=== PATIENT | male | born 1995 | race Caucasian/White ===

== ENCOUNTER 2023-02-19 15:40 | Inpatient (IN) ==
[2023-02-19 15:49] VITALS: BMI 21.9
--- NOTE | 2023-02-19 16:16 | DR.ALLERGY ---
HPI Time Seen Time Seen by Provider: 02/19/23 16:15 PCP Primary Care Physician: ISIS BROWNING Complaint/Symptoms Chief Complaint Doctors Comments: 27 y/o male presents for evaluation. Was helping a friend around a barn yesterday, pulling weeds. Showed his right hand to his girlfriend last pm, thought he had an insect/spider bite, was itchy. Worsened as the night went on. Having increasing swelling, redness, pain of the R hand. + felt warm his S.O, having some chills and diffuse muscle pain. Having increasing pain of the R hand, radiates up arm. + worse with moving and palpation. Nothing makes it better. No prior h/o MRSA infections. 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, FEVER LAST NIGHT, "I HAVE NEVER FELT THIS BAD"; ACHING ALL OVER, RIGHT HAND SWOLLEN, INFLAMMED; PAIN ALL OVER Self Treatment fo Chief Complaint: TYLENOL TODAY AROUND 1320 COVID-19 Coronavirus risk:travel/contact w/high risk person: No Has patient experienced Coronavirus symptoms: No Source History Provided: Patient and Family Member Mode of Arrival Mode of Arrival: Wheelchair Timing Onset of Chief Complaint: 02/19/23 PMH PMH Past Medical History: Yes Past Medical History: Anxiety Past Medical History Comment: MS, BACK PAIN Past Surgical History: No Family History History of Family Medical Conditions: No Social History Does patient currently use any type of tobacco product: Yes Have you used tobacco products in the last 12 months: Yes Type of Tobacco Use: Cigarettes Does any household member use tobacco: Yes Alcohol Use: DAILY Do you use any recreational Drugs:: Yes (MARIJUANA, METH) Lives With: Spouse Lives Where: Home Travel Risk Coronavirus risk:travel/contact w/high risk person: No Has patient experienced Coronavirus symptoms: No Infectious screening In the last 2 months have you had wt loss of >10#?: NO Have you had fever, night sweats or hemotysis?: No Have you traveled outside the country in the last 6 months?: No Isolation: Standard ROS Review of Systems Constitutional: Chills, Fever and Weakness Eyes: No Symptoms Reported ENTM: No Symptoms Reported Respiratoy: No Symptoms Reported Cardiovascular: No Symptoms Reported Gastrointestinal/Abdominal: No Symptoms Reported Genitourinary: No Symptoms Reported Neurological: Weakness Musculoskeletal: See HPI Integumentary: See HPI Hematologic/Lymphatic: No Symptoms Reported Psychiatric: No Symptoms Reported All Other Systems: Reviewed and Negative PE Vitals Vital Signs: Temp Pulse Resp BP Pulse Ox O2 Del Method 02/19/23 17:40 22 02/19/23 17:10 16 02/19/23 15:41 98.9 F 95 H 18 116/85 99 Room Air Constitutional General Appearance: Alert and Other (sleepy) Eyes Eye exam: PERRL and EOMI ENT ENT Exam: Mucous Membranes Moist Respiratory Respiratory Exam: Normal Lung Sounds Bilat; negative Accessory Muscle Use or Respiratory Distress Cardiovascular Cardiovascular Exam: Regular Rate, Normal Rhythm and Normal Heart Sounds Abdominal Exam Abdominal Exam: Normal Bowel Sounds and Soft; negative Tenderness Neurologic Neurological Exam: negative Motor Sensory Deficit Other Exam Other Exam: R hand - + 1 cm wound of dorsal distal R hand, with superficial loss of skin. + marked erythema/swekking and tenderness of the R hand. COURSE Treatment Treatment: 27 y/o male with a wound of the dorsal R hand, which has dramatically worsened in < 1 day. Highly concerning for infection, more than allergic reaction. W/u initiated. 1753 - WBC 26K, mostly neutrophils, no eosinophils. Hand x-ray without gas formation or bony involvement. Concerning for rapidily developing cellulitis. Recommend admission for IV antibiotics. Given IV zosyn/vancomycin in the ER. Discussed with Dr Miller, will admit. Pt/girlfriend deny that he injects drugs. Concerning for MRSA infection. ROR Labs Reviewed Result Diagrams: 02/19/23 16:52 02/19/23 16:52 Laboratory: WBC 26.0 X10^3/uL (3.6-10.0) H 02/19/23 16:52 RBC 4.83 X10^6/uL (4.7-6.0) 02/19/23 16:52 Hgb 14.5 g/dL (13.5-18.0) 02/19/23 16:52 Hct 42.7 % (42.0-54.0) 02/19/23 16:52 MCV 88.3 fL (80.0-100.0) 02/19/23 16:52 MCH 30.0 pg (27.0-34.0) 02/19/23 16:52 MCHC 34.0 g/dL (33.0-35.0) 02/19/23 16:52 RDW 12.1 % (11.6-16.5) 02/19/23 16:52 Plt Count 231 X10^3/uL (150.0-450.0) 02/19/23 16:52 Plt Count Comment Adequate (ADEQUATE) 02/19/23 16:52 MPV 7.7 fL (7.4-11.0) 02/19/23 16:52 Neut % (Auto) 88.3 % (42.0-75.0) H 02/19/23 16:52 Lymph % (Auto) 4.5 % (21.0-51.0) L 02/19/23 16:52 [place] % (Auto) 7.1 % (0.0-13.0) 02/19/23 16:52 Eos % (Auto) 0.0 % (0.9-2.9) L 02/19/23 16:52 Baso % (Auto) 0.1 % (0.2-1.0) L 02/19/23 16:52 Neut # (Auto) 22.9 x10^3/uL (2.2-4.8) H 02/19/23 16:52 Lymph # (Auto) 1.2 X10^3/uL (1.3-2.9) L 02/19/23 16:52 [place] # (Auto) 1.8 x10^3/uL (0.3-0.8) H 02/19/23 16:52 Eos # (Auto) 0.0 x10^3/uL (0.0-0.2) 02/19/23 16:52 Baso # (Auto) 0.0 X10^3/uL (0.0-0.1) 02/19/23 16:52 Absolute Nucleated RBC 0.0 /100WBC 02/19/23 16:52 Total Counted 100 02/19/23 16:52 Neutrophils % (Manual) 88 % (39-76) H 02/19/23 16:52 Lymphocytes % (Manual) 6 % (13-43) L 02/19/23 16:52 Monocytes % (Manual) 6 % (4-9) 02/19/23 16:52 Plt Morphology Comment Normal (NORMAL) 02/19/23 16:52 RBC Morphology Normal (NORMAL) 02/19/23 16:52 Sodium 135 mmol/L (136-145) L 02/19/23 16:52 Corrected Sodium 136 mmol/L (136-145) 02/19/23 16:52 Potassium 3.6 mmol/L (3.5-5.1) 02/19/23 16:52 Chloride 99 mmol/L (98-107) 02/19/23 16:52 Carbon Dioxide 26.8 mmol/L (21-32) 02/19/23 16:52 BUN 9 mg/dL (7-18) 02/19/23 16:52 Creatinine 0.83 mg/dL (0.70-1.30) 02/19/23 16:52 Est GFR (MDRD) Af Amer > 60 (>60) 02/19/23 16:52 Est GFR (MDRD) Non-Af > 60 (>60) 02/19/23 16:52 Glucose 145 mg/dL (65-99) H 02/19/23 16:52 Lactic Acid 1.5 mmol/L (0.4-2.0) 02/19/23 16:52 Calcium 9.2 mg/dL (8.5-10.1) 02/19/23 16:52 Corrected Calcium TNP 02/19/23 16:52 Total Bilirubin 0.90 mg/dL (0.2-1.0) 02/19/23 16:52 AST 17 Units/L (15-37) 02/19/23 16:52 ALT 30 Units/L (12-78) 02/19/23 16:52 Alkaline Phosphatase 48 Units/L (46-116) 02/19/23 16:52 Total Protein 6.9 g/dL (6.4-8.2) 02/19/23 16:52 Albumin 3.6 g/dL (3.4-5.0) 02/19/23 16:52 Globulin 3.3 g/dL (2.5-4.5) 02/19/23 16:52 Albumin/Globulin Ratio 1.1 Ratio (1.1-2.1) 02/19/23 16:52 Opioid Opioid Risk Tool Age (Jono box if 16-45): Yes History of Preadolescent Sexual Abuse: No Total: 1 Total Score Risk Category: Low Risk Copyright: Rao MARES predicting aberrant behaviors Discharge Plan Diagnosis Discharge Problem: Cellulitis of hand, right Discharge Plan Patient Disposition: 09 ADMITTED INPATIENT Condition: Stable Health Concerns: Post Hospitalization: new medications and changes needed to prevent readmission or further decline. Pt educated and given instructions on all concerns. Plan of Treatment: Continue with present treatment and follow up plan. Pt is to keep follow up appointment as instructed and take medications as ordered. Orders to Discharge Patient Discharge Orders: Transfer (Routine); Ordered 02/19/23 Ordered By: iGgi Fernández Follow ups/Referrals Follow ups/Referrals: ISIS BROWNING [Primary Care Provider] - 3 days
[2023-02-19] MEDS ORDERED: NS 1,000 ML IV 1,000 ML IV ONE (16:24)
[2023-02-19] MEDS ORDERED: TORADOL 30 MG VIAL IVP ONE (16:24)
[2023-02-19] MEDS ORDERED: NS 1,000 ML IV 1,000 ML ONE ×2 (17:05→18:12)
[2023-02-19] MEDS ORDERED: TORADOL 30 MG VIAL ONE (17:05)
[2023-02-19 17:12] LABS: HEMOGLOBIN 14.5 g/dL (13.5-18.0)
[2023-02-19 17:28] LABS: ALANINE AMINOTRANSFERASE 30 Units/L (12-78); ALBUMIN 3.6 g/dL (3.4-5.0); ALKALINE PHOSPHATASE 48 Units/L (46-116); ASPARTATE AMINO TRANSFERASE 17 Units/L (15-37); BLOOD UREA NITROGEN 9 mg/dL (7-18); CALCIUM 9.2 mg/dL (8.5-10.1); CARBON DIOXIDE 26.8 mmol/L (21-32); CHLORIDE 99 mmol/L (98-107); COR NA(FOR HYPERGLY) 136 mmol/L (136-145); CREATININE 0.83 mg/dL (0.70-1.30); GLUCOSE 145 mg/dL (65-99); POTASSIUM 3.6 mmol/L (3.5-5.1); SODIUM 135 mmol/L (136-145); TOTAL PROTEIN 6.9 g/dL (6.4-8.2); eGFR NON BLACK RACES > 60 (>60)
[2023-02-19 17:29] LABS: LACTIC ACID 1.5 mmol/L (0.4-2.0)
[2023-02-19 17:31] LABS: BASOPHILS % (AUTO) 0.1 % (0.2-1.0); HEMATOCRIT 42.7 % (42.0-54.0); LYMPHOCYTES # (AUTO) 1.2 X10^3/uL (1.3-2.9); LYMPHOCYTES % (AUTO) 4.5 % (21.0-51.0); MEAN CORPUSCULAR VOLUME 88.3 fL (80.0-100.0); MEAN PLATELET VOLUME 7.7 fL (7.4-11.0); MONOCYTES # (AUTO) 1.8 x10^3/uL (0.3-0.8); MONOCYTES % (AUTO) 7.1 % (0.0-13.0); NEUTROPHILS # (AUTO) 22.9 x10^3/uL (2.2-4.8); NEUTROPHILS % (AUTO) 88.3 % (42.0-75.0); PLATELET COUNT 231 X10^3/uL (150.0-450.0); RED BLOOD COUNT 4.83 X10^6/uL (4.7-6.0); RED CELL DISTRIBUTION WIDTH 12.1 % (11.6-16.5)
[2023-02-19] MEDS ORDERED: ZOSYN VIAL 3.375 GRAMS 3.375 G in NS 100 ML IV 100 ML IV ONE (17:50)
[2023-02-19] MEDS ORDERED: VANCOMYCIN IV *PREMIX 1 G/200 ML BAG 1 G/200 ML PIGGYBACK IV ONE ×2 (17:52→18:08)
[2023-02-19 17:53] LABS: PLATELET MORPHOLOGY COMMENT NORMAL (NORMAL)
[2023-02-19] MEDS ORDERED: MORPHINE SULFATE INJ 4 MG ONE (18:07)
[2023-02-19] MEDS ORDERED: ZOSYN VIAL 3.375 GRAMS IV ONE (18:07)
[2023-02-19] MEDS ORDERED: NS 100 ML IV 100 ML ONE (18:08)
[2023-02-19] MEDS: MORPHINE SULFATE INJ 4 MG IVP ONE ×2 (18:11→18:40)
[2023-02-19] MEDS ORDERED: NICOTINE PATCH TD STA (19:04)
[2023-02-19 19:26] LABS: BILIRUBIN,URINE NEGATIVE (NEGATIVE); BLOOD/HEMOGLOBIN,URINE NEGATIVE (NEGATIVE); GLUCOSE, URINE NEGATIVE (NEGATIVE); KETONES,URINE NEGATIVE (NEGATIVE); LEUKOCYTE ESTERASE ,URINE NEGATIVE (NEGATIVE); NITRITES,URINE NEGATIVE (NEGATIVE); PROTEIN,URINE 1+ (NEGATIVE); UROBILINOGEN,URINE NORMAL (NORMAL)
[2023-02-19] MEDS: NS 1,000 ML IV 1,000 ML IV SCH (19:30)
[2023-02-19 19:39] LABS: APPEARANCE,URINE CLEAR (CLEAR); BACTERIA,URINE NEGATIVE /HPF (NEGATIVE); COLOR,URINE YELLOW (YELLOW); RBC,URINE NONE SEEN /HPF (0-3); SQUAMOUS EPITHELIAL CELL,UR RARE /HPF (NEGATIVE)
[2023-02-19] MEDS ORDERED: ZOSYN VIAL 3.375 GRAMS 3.375 G in NS 100 ML IV 100 ML IV SCH (20:11)
[2023-02-19] MEDS: CHECK PATCH XX SCH (21:57)
[2023-02-19] MEDS: PHARMACY CONSULT - VANCOMYCIN XX SCH (21:58)
[2023-02-19] MEDS ORDERED: VANCOMYCIN IV *PREMIX 1 G/200 ML BAG 1 G/200 ML PIGGYBACK IV SCH (22:00)
[2023-02-20] MEDS ORDERED: ULTRAM PO PRN (02:55)
[2023-02-20] MEDS ORDERED: TYLENOL 325 MG TAB PO PRN (03:07)
[2023-02-20] MEDS: NS 1,000 ML IV 1,000 ML IV SCH ×3 (03:08→21:35)
[2023-02-20] MEDS: VANCOMYCIN IV *PREMIX 1 G/200 ML BAG 1 G/200 ML PIGGYBACK IV SCH ×3 (05:09→21:53)
[2023-02-20] MEDS: ZOSYN VIAL 3.375 GRAMS 3.375 G in NS 100 ML IV 100 ML IV SCH ×3 (05:09→21:44)
[2023-02-20 05:32] LABS: BASOPHILS # (AUTO) 0.1 X10^3/uL (0.0-0.1); BASOPHILS % (AUTO) 0.2 % (0.2-1.0); EOSINOPHILS % (AUTO) 0.1 % (0.9-2.9); HEMATOCRIT 42.7 % (42.0-54.0); HEMOGLOBIN 14.5 g/dL (13.5-18.0); LYMPHOCYTES # (AUTO) 1.7 X10^3/uL (1.3-2.9); LYMPHOCYTES % (AUTO) 7.4 % (21.0-51.0); MEAN CORPUSCULAR HEMOGLOBIN 30.2 pg (27.0-34.0); MEAN CORPUSCULAR VOLUME 88.7 fL (80.0-100.0); MEAN PLATELET VOLUME 7.7 fL (7.4-11.0); MONOCYTES # (AUTO) 1.9 x10^3/uL (0.3-0.8); MONOCYTES % (AUTO) 8.3 % (0.0-13.0); NEUTROPHILS # (AUTO) 18.7 x10^3/uL (2.2-4.8); PLATELET COUNT 199 X10^3/uL (150.0-450.0); RED BLOOD COUNT 4.81 X10^6/uL (4.7-6.0); RED CELL DISTRIBUTION WIDTH 12.4 % (11.6-16.5); WHITE BLOOD COUNT 22.3 X10^3/uL (3.6-10.0)
[2023-02-20 05:44] LABS: ALANINE AMINOTRANSFERASE 45 Units/L (12-78); ALBUMIN 3.2 g/dL (3.4-5.0); ALKALINE PHOSPHATASE 45 Units/L (46-116); ASPARTATE AMINO TRANSFERASE 27 Units/L (15-37); BLOOD UREA NITROGEN 9 mg/dL (7-18); CALCIUM 8.7 mg/dL (8.5-10.1); CARBON DIOXIDE 29.2 mmol/L (21-32); CHLORIDE 101 mmol/L (98-107); COR CA(FOR HYPOALB) 9.3 mg/dL (8.5-10.1); CREATININE 0.93 mg/dL (0.70-1.30); GLUCOSE 97 mg/dL (65-99); POTASSIUM 3.6 mmol/L (3.5-5.1); SODIUM 135 mmol/L (136-145); TOTAL PROTEIN 6.6 g/dL (6.4-8.2); eGFR NON BLACK RACES > 60 (>60)
[2023-02-20 05:50] LABS: BAND NEUTROPHILS % 3 % (0-10)
[2023-02-20 05:51] LABS: PLATELET MORPHOLOGY COMMENT NORMAL (NORMAL)
[2023-02-20] MEDS ORDERED: POTASSIUM CHLORIDE LIQ 20 MEQ UDC PO PRN (06:56)
[2023-02-20] MEDS ORDERED: POTASSIUM CHL 60 MEQ/NS 0.45% 500 ML IV PRN (06:56)
[2023-02-20] MEDS ORDERED: POTASSIUM CHL 40 MEQ/NS 0.45% 500 ML IV PRN (06:56)
[2023-02-20] MEDS ORDERED: MICRO K EXTEN CAP 10 MEQ PO PRN (06:56)
[2023-02-20] MEDS ORDERED: K-RIDER 10 MEQ/NS 100 ML 10 MEQ/100 ML BAG IV PRN (06:56)
[2023-02-20] MEDS ORDERED: KLOR-CON PO PRN (06:56)
--- NOTE | 2023-02-20 08:23 | RAD ---
HISTORYBiteSTUDYRight hand three viewsCOMPARISONNoneFINDINGSThere is marked soft tissue swelling of the hand without evidence for fracture, osteomyelitis, articular deformity or foreign body.IMPRESSIONNo acute osseous or joint space abnormality identified.Electronically signed by: THEODORE CARRION (Feb 20, 2023 08:22:25)
[2023-02-20] MEDS: CHECK PATCH XX SCH ×2 (08:34→21:52)
[2023-02-20] MEDS: NICOTINE PATCH TD SCH (08:34)
[2023-02-20] MEDS: MAGNESIUM SULFATE 1 GRAM/100 mL PREMIX 1 G/100 ML BAG IV PRN ×2 (11:47→21:35)
--- NOTE | 2023-02-20 11:48 | DR.H&P ---
H&P - History & Physical for Day of: H&P Date: 02/19/23 - Chief Complaint Chief Complaint: WOUND TO RIGHT HAND - History of Present Illness History of Present Illness: PT IS 27 WM, ER ADMISSION WITH CO he was helping a friend around a barn yesterday, pulling weeds. Showed his right hand to his girlfriend last pm, thought he had an insect/spider bite, was itchy. Worsened as the night went on. Having increasing swelling, redness, pain of the R hand. + felt warm his S.O, having some chills and diffuse muscle pain. Having increasing pain of the R hand, radiates up arm. + worse with moving and palpation. Nothing makes it better. No prior h/o MRSA infections. - Past Medical History Past Medical History: Anxiety Additional Medical History: illicit drug use - Family History Family Medical History: Hypertension - Social History Does patient currently use any type of tobacco product: Yes Have you used tobacco products in the last 12 months: Yes Type of Tobacco Use: Cigarettes Does any household member use tobacco: Yes Alcohol Use: Occasionally Drug Use: Methamphetamine, Marijuana - Medications Home Medications: No Known Allergies Allergy (Verified 02/19/23 17:03) CONTINUE taking the following medications NK 02/19/23 [History] - Review of Systems Constitutional: Fever, Weakness Eyes: No Symptoms Reported ENT: No Symptoms Reported Respiratory: No Symptoms Reported Cardiovascular: No Symptoms Reported Gastrointestinal: No Symptoms Reported Genitourinary: No Symptoms Reported Musculoskeletal: Hand Pain Skin: Wound Neurological: No Symptoms Reported - Physical Exam Vital Signs: Temperature 97.8 F Pulse Rate [Right Brachial] 71 Pulse Rate 95 Respiratory Rate 18 Blood Pressure [Right Arm] 119/56 Blood Pressure 116/85 O2 Sat by Pulse Oximetry 96 Oriented: Normal Eyes: Normal Ear: Normal Nose: Normal Throat: Normal Respiratory: Clear Throughout Cardiovascular: Normal : Normal Auscultation: Bowel Sounds: Normal Palpation: Normal Tenderness: Normal Skin: Red, Tender, Hot, Wound (right hand) Musculoskeletal: Right, Hand, Swelling, Tender Mood Description: Calm Speech Pattern: Clear (difficult to arouse ) - Assessment/Plan (1) Cellulitis of hand, right Status: Acute Plan: ADMIT, IV HYDRATION, IV ANTIBIOTIC THERAPY WITH ZOSYN AND VANCOMYCIN. VERIFY HOME MEDICATION, BLOOD AND WOUND CULTURES OBTAINED ON ADMISSION. HAND XRAY OBTAINED IN THE ER (2) Illicit drug use Status: Acute - Allergies Allergies/Adverse Reactions: Allergies Allergy/AdvReac Type Severity Reaction Status Date / Time No Known Allergies Allergy Verified 02/19/23 17:03
--- NOTE | 2023-02-20 11:50 | PCM.PROG ---
Progress Note - Progress Note for Day of Date of Exam: 02/20/23 - Subjective Subjective: PT IS 27 WM, ER ADMISSION WITH CELLULITIS TO HIS RIGHT HAND. PT IS CURRENTLY ON IV VANCO AND ZOSYN. PT WAS FEBRILE LAST PM. HE WBC AT 22K THIS AM. PT HAS BEEN DIFFICULT TO AROUSE PER NURSING STAFF. PT IS CURRENTLY ON GENTLE IV HYDRATION WITH PRN TYLENOL FOR PAIN. PLAN TO CONSULT DR PARTIDA FOR SURGICAL EVALUATION FOR POSSIBLE I&D. - Past Medical Family Social History Past Med/Fam/Surg Hx: No changes since H&P Allergies: Allergies No Known Allergies Allergy (Verified 02/19/23 17:03) - Review of Systems ROS: No change since H&P - Vital Signs and I&O's Vital Signs: Temperature 97.8 F Pulse Rate [Right Brachial] 71 Pulse Rate 95 Respiratory Rate 18 Blood Pressure [Right Arm] 119/56 Blood Pressure 116/85 O2 Sat by Pulse Oximetry 96 Intake and Output: Intake & Output 02/17/23 02/18/23 02/19/23 02/20/23 11:59 11:59 11:59 11:59 Intake Total 740 / 740 Balance 740 / 740 - Physical Exam Oriented: Normal Eyes: Normal Ear: Normal Nose: Normal Throat: Normal Cardiovascular: Normal : Normal Auscultation: Bowel Sounds: Normal Tenderness: Normal Skin: Red, Tender, Hot, Wound (right hand) Musculoskeletal: Right, Hand, Swelling, Tender Mood Description: Calm Speech Pattern: Clear (difficult to arouse ) - Laboratory and Diagnostics Result Diagrams: 02/20/23 05:10 02/20/23 05:10 Labs: 02/19/23 18:04 Hand - Right Wound Gram Stain - Final 02/19/23 18:04 Hand - Right Wound Culture - Preliminary Laboratory WBC 22.3 X10^3/uL (3.6-10.0) H 02/20/23 05:10 RBC 4.81 X10^6/uL (4.7-6.0) 02/20/23 05:10 Hgb 14.5 g/dL (13.5-18.0) 02/20/23 05:10 Hct 42.7 % (42.0-54.0) 02/20/23 05:10 MCV 88.7 fL (80.0-100.0) 02/20/23 05:10 MCH 30.2 pg (27.0-34.0) 02/20/23 05:10 MCHC 34.0 g/dL (33.0-35.0) 02/20/23 05:10 RDW 12.4 % (11.6-16.5) 02/20/23 05:10 Plt Count 199 X10^3/uL (150.0-450.0) 02/20/23 05:10 Plt Count Comment Adequate (ADEQUATE) 02/20/23 05:10 MPV 7.7 fL (7.4-11.0) 02/20/23 05:10 Neut % (Auto) 84.0 % (42.0-75.0) H 02/20/23 05:10 Lymph % (Auto) 7.4 % (21.0-51.0) L 02/20/23 05:10 [place] % (Auto) 8.3 % (0.0-13.0) 02/20/23 05:10 Eos % (Auto) 0.1 % (0.9-2.9) L 02/20/23 05:10 Baso % (Auto) 0.2 % (0.2-1.0) 02/20/23 05:10 Neut # (Auto) 18.7 x10^3/uL (2.2-4.8) H 02/20/23 05:10 Lymph # (Auto) 1.7 X10^3/uL (1.3-2.9) 02/20/23 05:10 [place] # (Auto) 1.9 x10^3/uL (0.3-0.8) H 02/20/23 05:10 Eos # (Auto) 0.0 x10^3/uL (0.0-0.2) 02/20/23 05:10 Baso # (Auto) 0.1 X10^3/uL (0.0-0.1) 02/20/23 05:10 Absolute Nucleated RBC 0.0 /100WBC 02/20/23 05:10 Total Counted 100 02/20/23 05:10 Neutrophils % (Manual) 84 % (39-76) H 02/20/23 05:10 Band Neutrophils % 3 % (0-10) 02/20/23 05:10 Lymphocytes % (Manual) 6 % (13-43) L 02/20/23 05:10 Monocytes % (Manual) 7 % (4-9) 02/20/23 05:10 Plt Morphology Comment Normal (NORMAL) 02/20/23 05:10 RBC Morphology Normal (NORMAL) 02/20/23 05:10 Sodium 135 mmol/L (136-145) L 02/20/23 05:10 Corrected Sodium TNP 02/20/23 05:10 Potassium 3.6 mmol/L (3.5-5.1) 02/20/23 05:10 Chloride 101 mmol/L (98-107) 02/20/23 05:10 Carbon Dioxide 29.2 mmol/L (21-32) 02/20/23 05:10 BUN 9 mg/dL (7-18) 02/20/23 05:10 Creatinine 0.93 mg/dL (0.70-1.30) 02/20/23 05:10 Est GFR (MDRD) Af Amer > 60 (>60) 02/20/23 05:10 Est GFR (MDRD) Non-Af > 60 (>60) 02/20/23 05:10 Glucose 97 mg/dL (65-99) 02/20/23 05:10 Lactic Acid 1.5 mmol/L (0.4-2.0) 02/19/23 16:52 Calcium 8.7 mg/dL (8.5-10.1) 02/20/23 05:10 Corrected Calcium 9.3 mg/dL (8.5-10.1) 02/20/23 05:10 Magnesium 1.7 mg/dL (2.0-2.9) L 02/20/23 05:10 Total Bilirubin 0.60 mg/dL (0.2-1.0) 02/20/23 05:10 AST 27 Units/L (15-37) 02/20/23 05:10 ALT 45 Units/L (12-78) 02/20/23 05:10 Alkaline Phosphatase 45 Units/L (46-116) L 02/20/23 05:10 Total Protein 6.6 g/dL (6.4-8.2) 02/20/23 05:10 Albumin 3.2 g/dL (3.4-5.0) L 02/20/23 05:10 Globulin 3.4 g/dL (2.5-4.5) 02/20/23 05:10 Albumin/Globulin Ratio 0.9 Ratio (1.1-2.1) L 02/20/23 05:10 Specimen Type Clean catch urine 02/19/23 19:18 Urine Color Yellow (YELLOW) 02/19/23 19:18 Urine Appearance Clear (CLEAR) 02/19/23 19:18 Urine pH 7.0 (5.0 - 8.0) 02/19/23 19:18 Ur Specific [place] 1.010 (1.000-1.030) 02/19/23 19:18 Urine Protein 1+ (NEGATIVE) 02/19/23 19:18 Urine Glucose (UA) Negative (NEGATIVE) 02/19/23 19:18 Urine Ketones Negative (NEGATIVE) 02/19/23 19:18 Urine Blood Negative (NEGATIVE) 02/19/23 19:18 Urine Nitrite Negative (NEGATIVE) 02/19/23 19:18 Urine Bilirubin Negative (NEGATIVE) 02/19/23 19:18 Urine Urobilinogen Normal (NORMAL) 02/19/23 19:18 Ur Leukocyte Esterase Negative (NEGATIVE) 02/19/23 19:18 Urine RBC None seen /HPF (0-3) 02/19/23 19:18 Urine WBC 0-2 /HPF (0-5) 02/19/23 19:18 Ur Squamous Epith Cells Rare /HPF (NEGATIVE) 02/19/23 19:18 Urine Bacteria Negative /HPF (NEGATIVE) 02/19/23 19:18 Ur Culture Indicated? No/not indicated 02/19/23 19:18 Urine Opiates Screen Negative (NEG=<300) 02/19/23 19:18 Urine Methadone Screen Negative (NEG=<300) 02/19/23 19:18 Ur Barbiturates Screen Negative (NEG=<200) 02/19/23 19:18 Ur Phencyclidine Scrn Negative (NEG=<25) 02/19/23 19:18 Ur Amphetamines Screen Positive (NEG=<1000) 02/19/23 19:18 U Benzodiazepines Scrn Negative (NEG=<200) 02/19/23 19:18 Urine Cocaine Screen Negative (NEG=<300) 02/19/23 19:18 U Marijuana (THC) Screen Positive (NEG=<50) A 02/19/23 19:18 - Plan (1) Cellulitis of hand, right Status: Acute Plan: IV HYDRATION, IV ANTIBIOTIC THERAPY WITH ZOSYN AND VANCOMYCIN. VERIFY HOME MEDICATION, BLOOD AND WOUND CULTURES OBTAINED ON ADMISSION. HAND XRAY OBTAINED IN THE ER (2) Illicit drug use Status: Acute
[2023-02-20] MEDS ORDERED: NS IRRIGATION* 500 ML IR ONE (15:23)
[2023-02-20 21:20] LABS: CREATININE 0.84 mg/dL (0.70-1.30)
[2023-02-20] MEDS: TORADOL 30 MG VIAL IVP PRN (21:40)
[2023-02-20] MEDS: K-DUR TAB 20 MEQ PO PRN (21:40)
[2023-02-20] MEDS ORDERED: PHARMACY COMMENT IV SCH (21:45)
[2023-02-20] MEDS: PHARMACY CONSULT - VANCOMYCIN XX SCH (21:52)
[2023-02-21] MEDS: TORADOL 30 MG VIAL IVP PRN ×3 (04:53→16:45)
[2023-02-21] MEDS: VANCOMYCIN IV *PREMIX 1 G/200 ML BAG 1 G/200 ML PIGGYBACK IV SCH ×3 (05:13→22:01)
[2023-02-21] MEDS: ZOSYN VIAL 3.375 GRAMS 3.375 G in NS 100 ML IV 100 ML IV SCH ×3 (05:40→22:01)
[2023-02-21 05:51] LABS: BASOPHILS # (AUTO) 0.1 X10^3/uL (0.0-0.1); BASOPHILS % (AUTO) 0.5 % (0.2-1.0); EOSINOPHILS # (AUTO) 0.1 x10^3/uL (0.0-0.2); EOSINOPHILS % (AUTO) 0.6 % (0.9-2.9); HEMATOCRIT 36.1 % (42.0-54.0); LYMPHOCYTES # (AUTO) 1.5 X10^3/uL (1.3-2.9); MEAN CORPUSCULAR HEMOGLOBIN 30.1 pg (27.0-34.0); MEAN CORPUSCULAR HGB CONC 34.2 g/dL (33.0-35.0); MEAN CORPUSCULAR VOLUME 88.1 fL (80.0-100.0); MEAN PLATELET VOLUME 7.8 fL (7.4-11.0); MONOCYTES # (AUTO) 1.2 x10^3/uL (0.3-0.8); MONOCYTES % (AUTO) 7.4 % (0.0-13.0); NEUTROPHILS # (AUTO) 13.9 x10^3/uL (2.2-4.8); NEUTROPHILS % (AUTO) 82.5 % (42.0-75.0); PLATELET COUNT 189 X10^3/uL (150.0-450.0); RED BLOOD COUNT 4.09 X10^6/uL (4.7-6.0); RED CELL DISTRIBUTION WIDTH 12.3 % (11.6-16.5); WHITE BLOOD COUNT 16.8 X10^3/uL (3.6-10.0)
[2023-02-21 05:59] LABS: HEMOGLOBIN 12.3 g/dL (13.5-18.0)
[2023-02-21 06:08] LABS: ALANINE AMINOTRANSFERASE 47 Units/L (12-78); ALBUMIN 2.3 g/dL (3.4-5.0); ALKALINE PHOSPHATASE 50 Units/L (46-116); ASPARTATE AMINO TRANSFERASE 25 Units/L (15-37); BLOOD UREA NITROGEN 8 mg/dL (7-18); CALCIUM 7.8 mg/dL (8.5-10.1); CARBON DIOXIDE 23.5 mmol/L (21-32); CHLORIDE 107 mmol/L (98-107); COR CA(FOR HYPOALB) 9.2 mg/dL (8.5-10.1); COR NA(FOR HYPERGLY) 142 mmol/L (136-145); CREATININE 0.81 mg/dL (0.70-1.30); GLUCOSE 163 mg/dL (65-99); POTASSIUM 3.8 mmol/L (3.5-5.1); SODIUM 140 mmol/L (136-145); TOTAL PROTEIN 5.5 g/dL (6.4-8.2); eGFR NON BLACK RACES > 60 (>60)
[2023-02-21] MEDS: NICOTINE PATCH TD SCH (08:11)
[2023-02-21] MEDS: NS 1,000 ML IV 1,000 ML IV SCH ×3 (08:11→19:12)
[2023-02-21] MEDS: CHECK PATCH XX SCH ×2 (08:13→21:50)
[2023-02-21] MEDS: MAGNESIUM SULFATE 1 GRAM/100 mL PREMIX 1 G/100 ML BAG IV PRN ×2 (08:13→10:47)
[2023-02-21] MEDS ORDERED: POLYMYXIN B SULFATE ONE (11:16)
[2023-02-21] MEDS ORDERED: BETADINE SOLN ONE (11:17)
[2023-02-21] MEDS ORDERED: DILAUDID INJ ONE (11:18)
[2023-02-21] MEDS ORDERED: XYLOCAINE 1 % (PLAIN) ONE (11:19)
[2023-02-21] MEDS ORDERED: ANCEF VIAL 1 GRAM ONE (11:31)
[2023-02-21] MEDS ORDERED: NS 100 ML IV 100 ML ONE (11:31)
[2023-02-21] MEDS: K-DUR TAB 20 MEQ PO PRN (17:47)
[2023-02-21] MEDS: PHENOBARBITAL SODIUM INJ 65 MG VIAL IVP PRN (19:07)
[2023-02-22] MEDS: TORADOL 30 MG VIAL IVP PRN ×3 (00:35→18:46)
[2023-02-22] MEDS: NS 1,000 ML IV 1,000 ML IV SCH ×4 (03:56→20:39)
[2023-02-22] MEDS: ZOSYN VIAL 3.375 GRAMS 3.375 G in NS 100 ML IV 100 ML IV SCH ×3 (05:02→22:08)
[2023-02-22 05:50] LABS: BASOPHILS # (AUTO) 0.1 X10^3/uL (0.0-0.1); EOSINOPHILS # (AUTO) 0.1 x10^3/uL (0.0-0.2); EOSINOPHILS % (AUTO) 0.9 % (0.9-2.9); HEMATOCRIT 36.3 % (42.0-54.0); HEMOGLOBIN 12.3 g/dL (13.5-18.0); LYMPHOCYTES # (AUTO) 1.8 X10^3/uL (1.3-2.9); LYMPHOCYTES % (AUTO) 15.6 % (21.0-51.0); MEAN CORPUSCULAR HGB CONC 33.9 g/dL (33.0-35.0); MEAN CORPUSCULAR VOLUME 88.4 fL (80.0-100.0); MEAN PLATELET VOLUME 7.9 fL (7.4-11.0); MONOCYTES % (AUTO) 8.2 % (0.0-13.0); NEUTROPHILS # (AUTO) 8.7 x10^3/uL (2.2-4.8); NEUTROPHILS % (AUTO) 74.3 % (42.0-75.0); PLATELET COUNT 233 X10^3/uL (150.0-450.0); RED BLOOD COUNT 4.11 X10^6/uL (4.7-6.0); RED CELL DISTRIBUTION WIDTH 12.4 % (11.6-16.5); WHITE BLOOD COUNT 11.7 X10^3/uL (3.6-10.0)
[2023-02-22 06:04] LABS: ALANINE AMINOTRANSFERASE 58 Units/L (12-78); ALBUMIN 2.4 g/dL (3.4-5.0); ALKALINE PHOSPHATASE 49 Units/L (46-116); ASPARTATE AMINO TRANSFERASE 25 Units/L (15-37); BLOOD UREA NITROGEN 5 mg/dL (7-18); CALCIUM 8.2 mg/dL (8.5-10.1); CHLORIDE 106 mmol/L (98-107); COR CA(FOR HYPOALB) 9.5 mg/dL (8.5-10.1); GLUCOSE 95 mg/dL (65-99); MAGNESIUM 1.7 mg/dL (2.0-2.9); SODIUM 140 mmol/L (136-145); TOTAL PROTEIN 5.7 g/dL (6.4-8.2); VANCOMYCIN,TROUGH 7.9 ug/mL (15-20); eGFR NON BLACK RACES > 60 (>60)
[2023-02-22] MEDS: VANCOMYCIN IV *PREMIX 1.25 G/250 ML BAG 1.25 G/250 ML PIGGYBACK IV SCH ×3 (06:20→21:15)
[2023-02-22] MEDS: MAGNESIUM SULFATE 1 GRAM/100 mL PREMIX 1 G/100 ML BAG IV PRN ×2 (07:27→08:57)
[2023-02-22] MEDS: NICOTINE PATCH TD SCH (08:57)
[2023-02-22] MEDS: HIBICLENS WASH EXT PRN ×2 (09:00→20:40)
[2023-02-22] MEDS: STERILE WATER IRRIGATION IR PRN ×2 (09:00→20:40)
[2023-02-22] MEDS: PHENOBARBITAL SODIUM INJ 65 MG VIAL IVP PRN ×2 (09:05→19:19)
[2023-02-22] MEDS: CHECK PATCH XX SCH ×2 (09:06→21:22)
[2023-02-22] MEDS: BACTROBAN TOPICAL OINT TOP SCH ×2 (09:06→21:22)
[2023-02-22] MEDS ORDERED: MAALOX or MYLANTA PO PRN (14:53)
--- NOTE | 2023-02-22 17:21 | DR.PROGNOT ---
HOSPITAL PROGRESS NOTE Progress Note for Day of: Progress Note Date: 02/22/23 Chief Complaint Chief Complaint: s/p debridement RT hand abscess . slow improvement . moderate edema of the whole RT forearm and hand . Past Medical Family Social History Past Med/Fam/Surg Hx: No changes since H&P Allergies: Allergies No Known Allergies Allergy (Verified 02/19/23 17:03) Review Of Systems ROS: No change since H&P Vital Signs Vital Signs: Temperature 98.1 F Pulse Rate [Right Brachial] 85 Pulse Rate 85 Respiratory Rate 18 Blood Pressure [Left Arm] 168/97 Blood Pressure [Right Arm] 169/80 Blood Pressure 119/72 O2 Sat by Pulse Oximetry 100 Physical Exam Oriented: Normal Eyes: Normal Ear: Normal Nose: Normal Throat: Normal Cardiovascular: Normal : Normal GI:Auscultation: Normal GI:Palpation: Normal GI: Tenderness: Normal Skin: Red, Tender, Hot and Wound (right hand with mild improvement of the deep infection .limited ROM because of the pain ) Musculoskeletal: Right, Hand, Swelling and Tender Mood Description: Calm Speech Pattern: Clear Laboratory and Diagnostics Result Diagrams: 02/22/23 05:12 02/22/23 05:12 Labs: 02/21/23 11:44 Hand - Right Wound Gram Stain - Final 02/21/23 11:44 Hand - Right Wound Culture - Preliminary 02/19/23 18:04 Hand - Right Wound Gram Stain - Final 02/19/23 18:04 Hand - Right Wound Culture - Final Strep Pyogenes (Grp A) 02/19/23 16:57 Blood Blood Culture - Preliminary 02/19/23 16:52 Blood Blood Culture - Preliminary Laboratory WBC 11.7 X10^3/uL (3.6-10.0) H 02/22/23 05:12 RBC 4.11 X10^6/uL (4.7-6.0) L 02/22/23 05:12 Hgb 12.3 g/dL (13.5-18.0) L 02/22/23 05:12 Hct 36.3 % (42.0-54.0) L 02/22/23 05:12 MCV 88.4 fL (80.0-100.0) 02/22/23 05:12 MCH 30.0 pg (27.0-34.0) 02/22/23 05:12 MCHC 33.9 g/dL (33.0-35.0) 02/22/23 05:12 RDW 12.4 % (11.6-16.5) 02/22/23 05:12 Plt Count 233 X10^3/uL (150.0-450.0) 02/22/23 05:12 Plt Count Comment Adequate (ADEQUATE) 02/20/23 05:10 MPV 7.9 fL (7.4-11.0) 02/22/23 05:12 Neut % (Auto) 74.3 % (42.0-75.0) 02/22/23 05:12 Lymph % (Auto) 15.6 % (21.0-51.0) L 02/22/23 05:12 [place] % (Auto) 8.2 % (0.0-13.0) 02/22/23 05:12 Eos % (Auto) 0.9 % (0.9-2.9) 02/22/23 05:12 Baso % (Auto) 1.0 % (0.2-1.0) 02/22/23 05:12 Neut # (Auto) 8.7 x10^3/uL (2.2-4.8) H 02/22/23 05:12 Lymph # (Auto) 1.8 X10^3/uL (1.3-2.9) 02/22/23 05:12 [place] # (Auto) 1.0 x10^3/uL (0.3-0.8) H 02/22/23 05:12 Eos # (Auto) 0.1 x10^3/uL (0.0-0.2) 02/22/23 05:12 Baso # (Auto) 0.1 X10^3/uL (0.0-0.1) 02/22/23 05:12 Absolute Nucleated RBC 0.0 /100WBC 02/22/23 05:12 Total Counted 100 02/20/23 05:10 Neutrophils % (Manual) 84 % (39-76) H 02/20/23 05:10 Band Neutrophils % 3 % (0-10) 02/20/23 05:10 Lymphocytes % (Manual) 6 % (13-43) L 02/20/23 05:10 Monocytes % (Manual) 7 % (4-9) 02/20/23 05:10 Plt Morphology Comment Normal (NORMAL) 02/20/23 05:10 RBC Morphology Normal (NORMAL) 02/20/23 05:10 Sodium 140 mmol/L (136-145) 02/22/23 05:12 Corrected Sodium TNP 02/22/23 05:12 Potassium 4.0 mmol/L (3.5-5.1) 02/22/23 05:12 Chloride 106 mmol/L (98-107) 02/22/23 05:12 Carbon Dioxide 28.0 mmol/L (21-32) 02/22/23 05:12 BUN 5 mg/dL (7-18) L 02/22/23 05:12 Creatinine 0.70 mg/dL (0.70-1.30) 02/22/23 05:12 Est GFR (MDRD) Af Amer > 60 (>60) 02/22/23 05:12 Est GFR (MDRD) Non-Af > 60 (>60) 02/22/23 05:12 Glucose 95 mg/dL (65-99) 02/22/23 05:12 Lactic Acid 1.5 mmol/L (0.4-2.0) 02/19/23 16:52 Calcium 8.2 mg/dL (8.5-10.1) L 02/22/23 05:12 Corrected Calcium 9.5 mg/dL (8.5-10.1) 02/22/23 05:12 Magnesium 1.7 mg/dL (2.0-2.9) L 02/22/23 05:12 Total Bilirubin 0.40 mg/dL (0.2-1.0) 02/22/23 05:12 AST 25 Units/L (15-37) 02/22/23 05:12 ALT 58 Units/L (12-78) 02/22/23 05:12 Alkaline Phosphatase 49 Units/L (46-116) 02/22/23 05:12 Total Protein 5.7 g/dL (6.4-8.2) L 02/22/23 05:12 Albumin 2.4 g/dL (3.4-5.0) L 02/22/23 05:12 Globulin 3.3 g/dL (2.5-4.5) 02/22/23 05:12 Albumin/Globulin Ratio 0.7 Ratio (1.1-2.1) L 02/22/23 05:12 Specimen Type Clean catch urine 02/19/23 19:18 Urine Color Yellow (YELLOW) 02/19/23 19:18 Urine Appearance Clear (CLEAR) 02/19/23 19:18 Urine pH 7.0 (5.0 - 8.0) 02/19/23 19:18 Ur Specific [place] 1.010 (1.000-1.030) 02/19/23 19:18 Urine Protein 1+ (NEGATIVE) 02/19/23 19:18 Urine Glucose (UA) Negative (NEGATIVE) 02/19/23 19:18 Urine Ketones Negative (NEGATIVE) 02/19/23 19:18 Urine Blood Negative (NEGATIVE) 02/19/23 19:18 Urine Nitrite Negative (NEGATIVE) 02/19/23 19:18 Urine Bilirubin Negative (NEGATIVE) 02/19/23 19:18 Urine Urobilinogen Normal (NORMAL) 02/19/23 19:18 Ur Leukocyte Esterase Negative (NEGATIVE) 02/19/23 19:18 Urine RBC None seen /HPF (0-3) 02/19/23 19:18 Urine WBC 0-2 /HPF (0-5) 02/19/23 19:18 Ur Squamous Epith Cells Rare /HPF (NEGATIVE) 02/19/23 19:18 Urine Bacteria Negative /HPF (NEGATIVE) 02/19/23 19:18 Ur Culture Indicated? No/not indicated 02/19/23 19:18 Vancomycin Trough 7.9 ug/mL (15-20) L 02/22/23 05:12 Urine Opiates Screen Negative (NEG=<300) 02/19/23 19:18 Urine Methadone Screen Negative (NEG=<300) 02/19/23 19:18 Ur Barbiturates Screen Negative (NEG=<200) 02/19/23 19:18 Ur Phencyclidine Scrn Negative (NEG=<25) 02/19/23 19:18 Ur Amphetamines Screen Positive (NEG=<1000) 02/19/23 19:18 U Benzodiazepines Scrn Negative (NEG=<200) 02/19/23 19:18 Urine Cocaine Screen Negative (NEG=<300) 02/19/23 19:18 U Marijuana (THC) Screen Positive (NEG=<50) A 02/19/23 19:18 Assessment and Plan 1: cellulitis with abscess RT hand . S/P debridement . same local care . IV ABT . hand elevation . Problem Patient Problems: Patient Problems (Updated 02/19/23 @ 19:06 by Gigi Fernández) Cellulitis of hand, right (Acute) L03.113 Illicit drug use (Acute) F19.90
[2023-02-22] MEDS ORDERED: HIBICLENS WASH ONE (20:20)
[2023-02-22] MEDS ORDERED: STERILE WATER IRRIGATION IR ONE (20:21)
[2023-02-23] MEDS: NS 1,000 ML IV 1,000 ML IV SCH ×3 (03:00→20:00)
[2023-02-23] MEDS: TORADOL 30 MG VIAL IVP PRN ×2 (04:15→12:21)
[2023-02-23] MEDS: ZOSYN VIAL 3.375 GRAMS 3.375 G in NS 100 ML IV 100 ML IV SCH ×3 (05:17→22:00)
[2023-02-23] MEDS ORDERED: PHARMACY COMMENT IV ONE (05:30)
[2023-02-23 06:10] LABS: BASOPHILS # (AUTO) 0.1 X10^3/uL (0.0-0.1); BASOPHILS % (AUTO) 0.7 % (0.2-1.0); EOSINOPHILS # (AUTO) 0.3 x10^3/uL (0.0-0.2); EOSINOPHILS % (AUTO) 2.6 % (0.9-2.9); HEMATOCRIT 36.8 % (42.0-54.0); HEMOGLOBIN 12.7 g/dL (13.5-18.0); LYMPHOCYTES # (AUTO) 2.4 X10^3/uL (1.3-2.9); LYMPHOCYTES % (AUTO) 25.1 % (21.0-51.0); MEAN CORPUSCULAR HEMOGLOBIN 30.7 pg (27.0-34.0); MEAN CORPUSCULAR HGB CONC 34.5 g/dL (33.0-35.0); MEAN PLATELET VOLUME 7.4 fL (7.4-11.0); MONOCYTES # (AUTO) 0.9 x10^3/uL (0.3-0.8); MONOCYTES % (AUTO) 9.2 % (0.0-13.0); NEUTROPHILS # (AUTO) 5.9 x10^3/uL (2.2-4.8); NEUTROPHILS % (AUTO) 62.4 % (42.0-75.0); PLATELET COUNT 237 X10^3/uL (150.0-450.0); RED BLOOD COUNT 4.14 X10^6/uL (4.7-6.0); RED CELL DISTRIBUTION WIDTH 12.4 % (11.6-16.5); WHITE BLOOD COUNT 9.5 X10^3/uL (3.6-10.0)
[2023-02-23 06:13] LABS: VANCOMYCIN,TROUGH 8.8 ug/mL (15-20)
[2023-02-23 06:19] LABS: ALANINE AMINOTRANSFERASE 42 Units/L (12-78); ALBUMIN 2.2 g/dL (3.4-5.0); ALKALINE PHOSPHATASE 53 Units/L (46-116); ASPARTATE AMINO TRANSFERASE 12 Units/L (15-37); BLOOD UREA NITROGEN 6 mg/dL (7-18); CALCIUM 7.8 mg/dL (8.5-10.1); CARBON DIOXIDE 27.1 mmol/L (21-32); CHLORIDE 108 mmol/L (98-107); COR CA(FOR HYPOALB) 9.2 mg/dL (8.5-10.1); CREATININE 0.66 mg/dL (0.70-1.30); GLUCOSE 95 mg/dL (65-99); MAGNESIUM 1.8 mg/dL (2.0-2.9); POTASSIUM 3.7 mmol/L (3.5-5.1); SODIUM 141 mmol/L (136-145); TOTAL PROTEIN 5.4 g/dL (6.4-8.2); eGFR NON BLACK RACES > 60 (>60)
[2023-02-23] MEDS: VANCOMYCIN IV *PREMIX 1.5 G/300 ML BAG 1.5 G/300 ML PIGGYBACK IV SCH ×3 (06:32→23:00)
[2023-02-23] MEDS: NICOTINE PATCH TD SCH (09:06)
[2023-02-23] MEDS: MAGNESIUM SULFATE 1 GRAM/100 mL PREMIX 1 G/100 ML BAG IV PRN (09:08)
[2023-02-23] MEDS: CHECK PATCH XX SCH ×2 (09:56→21:00)
[2023-02-23] MEDS: BACTROBAN TOPICAL OINT TOP SCH ×2 (12:22→22:04)
[2023-02-23] MEDS: HIBICLENS WASH EXT PRN (12:23)
--- NOTE | 2023-02-23 12:38 | DR.PROGNOT ---
HOSPITAL PROGRESS NOTE Progress Note for Day of: Progress Note Date: 02/23/23 Chief Complaint Chief Complaint: slow improvement . pain is less . erythema is less, moderate edema . WBC is 9.5 Past Medical Family Social History Past Med/Fam/Surg Hx: No changes since H&P Allergies: Allergies No Known Allergies Allergy (Verified 02/19/23 17:03) Review Of Systems ROS: No change since H&P Vital Signs Vital Signs: Temperature 98.6 F Pulse Rate [Right Brachial] 65 Pulse Rate 85 Respiratory Rate 18 Blood Pressure [Left Arm] 115/65 Blood Pressure [Right Arm] 114/70 Blood Pressure 119/72 O2 Sat by Pulse Oximetry 95 Physical Exam Oriented: Normal Eyes: Normal Ear: Normal Nose: Normal Throat: Normal Cardiovascular: Normal : Normal GI:Auscultation: Normal GI:Palpation: Normal GI: Tenderness: Normal Skin: Red, Tender, Hot and Wound (right hand with mild improvement of the deep infection .limited ROM because of the pain .several small blisters of the fingers,3 and 4 th .) Musculoskeletal: Right, Hand, Swelling and Tender Mood Description: Calm Speech Pattern: Clear Laboratory and Diagnostics Result Diagrams: 02/23/23 05:32 02/23/23 05:32 Labs: 02/21/23 11:44 Hand - Right Wound Gram Stain - Final 02/21/23 11:44 Hand - Right Wound Culture - Preliminary 02/19/23 18:04 Hand - Right Wound Gram Stain - Final 02/19/23 18:04 Hand - Right Wound Culture - Final Strep Pyogenes (Grp A) 02/19/23 16:57 Blood Blood Culture - Preliminary 02/19/23 16:52 Blood Blood Culture - Preliminary Laboratory WBC 9.5 X10^3/uL (3.6-10.0) 02/23/23 05:32 RBC 4.14 X10^6/uL (4.7-6.0) L 02/23/23 05:32 Hgb 12.7 g/dL (13.5-18.0) L 02/23/23 05:32 Hct 36.8 % (42.0-54.0) L 02/23/23 05:32 MCV 89.0 fL (80.0-100.0) 02/23/23 05:32 MCH 30.7 pg (27.0-34.0) 02/23/23 05:32 MCHC 34.5 g/dL (33.0-35.0) 02/23/23 05:32 RDW 12.4 % (11.6-16.5) 02/23/23 05:32 Plt Count 237 X10^3/uL (150.0-450.0) 02/23/23 05:32 Plt Count Comment Adequate (ADEQUATE) 02/20/23 05:10 MPV 7.4 fL (7.4-11.0) 02/23/23 05:32 Neut % (Auto) 62.4 % (42.0-75.0) 02/23/23 05:32 Lymph % (Auto) 25.1 % (21.0-51.0) 02/23/23 05:32 [place] % (Auto) 9.2 % (0.0-13.0) 02/23/23 05:32 Eos % (Auto) 2.6 % (0.9-2.9) 02/23/23 05:32 Baso % (Auto) 0.7 % (0.2-1.0) 02/23/23 05:32 Neut # (Auto) 5.9 x10^3/uL (2.2-4.8) H 02/23/23 05:32 Lymph # (Auto) 2.4 X10^3/uL (1.3-2.9) 02/23/23 05:32 [place] # (Auto) 0.9 x10^3/uL (0.3-0.8) H 02/23/23 05:32 Eos # (Auto) 0.3 x10^3/uL (0.0-0.2) H 02/23/23 05:32 Baso # (Auto) 0.1 X10^3/uL (0.0-0.1) 02/23/23 05:32 Absolute Nucleated RBC 0.0 /100WBC 02/23/23 05:32 Total Counted 100 02/20/23 05:10 Neutrophils % (Manual) 84 % (39-76) H 02/20/23 05:10 Band Neutrophils % 3 % (0-10) 02/20/23 05:10 Lymphocytes % (Manual) 6 % (13-43) L 02/20/23 05:10 Monocytes % (Manual) 7 % (4-9) 02/20/23 05:10 Plt Morphology Comment Normal (NORMAL) 02/20/23 05:10 RBC Morphology Normal (NORMAL) 02/20/23 05:10 Sodium 141 mmol/L (136-145) 02/23/23 05:32 Corrected Sodium TNP 02/23/23 05:32 Potassium 3.7 mmol/L (3.5-5.1) 02/23/23 05:32 Chloride 108 mmol/L (98-107) H 02/23/23 05:32 Carbon Dioxide 27.1 mmol/L (21-32) 02/23/23 05:32 BUN 6 mg/dL (7-18) L 02/23/23 05:32 Creatinine 0.66 mg/dL (0.70-1.30) L 02/23/23 05:32 Est GFR (MDRD) Af Amer > 60 (>60) 02/23/23 05:32 Est GFR (MDRD) Non-Af > 60 (>60) 02/23/23 05:32 Glucose 95 mg/dL (65-99) 02/23/23 05:32 Lactic Acid 1.5 mmol/L (0.4-2.0) 02/19/23 16:52 Calcium 7.8 mg/dL (8.5-10.1) L 02/23/23 05:32 Corrected Calcium 9.2 mg/dL (8.5-10.1) 02/23/23 05:32 Magnesium 1.8 mg/dL (2.0-2.9) L 02/23/23 05:32 Total Bilirubin 0.10 mg/dL (0.2-1.0) L 02/23/23 05:32 AST 12 Units/L (15-37) L 02/23/23 05:32 ALT 42 Units/L (12-78) 02/23/23 05:32 Alkaline Phosphatase 53 Units/L (46-116) 02/23/23 05:32 Total Protein 5.4 g/dL (6.4-8.2) L 02/23/23 05:32 Albumin 2.2 g/dL (3.4-5.0) L 02/23/23 05:32 Globulin 3.2 g/dL (2.5-4.5) 02/23/23 05:32 Albumin/Globulin Ratio 0.7 Ratio (1.1-2.1) L 02/23/23 05:32 Specimen Type Clean catch urine 02/19/23 19:18 Urine Color Yellow (YELLOW) 02/19/23 19:18 Urine Appearance Clear (CLEAR) 02/19/23 19:18 Urine pH 7.0 (5.0 - 8.0) 02/19/23 19:18 Ur Specific [place] 1.010 (1.000-1.030) 02/19/23 19:18 Urine Protein 1+ (NEGATIVE) 02/19/23 19:18 Urine Glucose (UA) Negative (NEGATIVE) 02/19/23 19:18 Urine Ketones Negative (NEGATIVE) 02/19/23 19:18 Urine Blood Negative (NEGATIVE) 02/19/23 19:18 Urine Nitrite Negative (NEGATIVE) 02/19/23 19:18 Urine Bilirubin Negative (NEGATIVE) 02/19/23 19:18 Urine Urobilinogen Normal (NORMAL) 02/19/23 19:18 Ur Leukocyte Esterase Negative (NEGATIVE) 02/19/23 19:18 Urine RBC None seen /HPF (0-3) 02/19/23 19:18 Urine WBC 0-2 /HPF (0-5) 02/19/23 19:18 Ur Squamous Epith Cells Rare /HPF (NEGATIVE) 02/19/23 19:18 Urine Bacteria Negative /HPF (NEGATIVE) 02/19/23 19:18 Ur Culture Indicated? No/not indicated 02/19/23 19:18 Vancomycin Trough 8.8 ug/mL (15-20) L 02/23/23 05:32 Urine Opiates Screen Negative (NEG=<300) 02/19/23 19:18 Urine Methadone Screen Negative (NEG=<300) 02/19/23 19:18 Ur Barbiturates Screen Negative (NEG=<200) 02/19/23 19:18 Ur Phencyclidine Scrn Negative (NEG=<25) 02/19/23 19:18 Ur Amphetamines Screen Positive (NEG=<1000) 02/19/23 19:18 U Benzodiazepines Scrn Negative (NEG=<200) 02/19/23 19:18 Urine Cocaine Screen Negative (NEG=<300) 02/19/23 19:18 U Marijuana (THC) Screen Positive (NEG=<50) A 02/19/23 19:18 Assessment and Plan 1: cellulitis with abscess RT hand . S/P debridement . same local care with soaking in H2O2 and Saline . . IV ABT . hand elevation . Problem Patient Problems: Patient Problems (Updated 02/19/23 @ 19:06 by Gigi Fernández) Cellulitis of hand, right (Acute) L03.113 Illicit drug use (Acute) F19.90
[2023-02-23] MEDS: MAG-OX TAB PO SCH (17:35)
--- NOTE | 2023-02-23 18:39 | PCM.PROG ---
Progress Note - Progress Note for Day of Date of Exam: 02/23/23 - Subjective Subjective: he patient is a 27-year-old white male with cellulitis to his right hand, at the base of his index. He is status post I&D per Dr. Rg. He is on Zosyn and Vancomycin. The patient is also receiving wound care with peroxide and saline soak, and topical ointment. The patient was instructed to use a sling or elevate the right upper extremity during the day. He has been afebrile. He still continues with elevated white blood cell count and complaining of pain to the area. - Past Medical Family Social History Past Med/Fam/Surg Hx: No changes since H&P Allergies: Allergies No Known Allergies Allergy (Verified 02/19/23 17:03) - Review of Systems ROS: No change since H&P - Vital Signs and I&O's Vital Signs: Temperature 98.1 F Pulse Rate [Right Brachial] 73 Pulse Rate 85 Respiratory Rate 18 Blood Pressure [Left Arm] 135/82 Blood Pressure [Right Arm] 114/70 Blood Pressure 119/72 O2 Sat by Pulse Oximetry 100 Intake and Output: Intake & Output 02/21/23 02/22/23 02/23/23 02/24/23 11:59 11:59 11:59 11:59 Intake Total 4100 / 4100 4188 / 4188 3350 / 3350 680 / 680 Output Total 500 / 500 Balance 3600 / 3600 4188 / 4188 3350 / 3350 680 / 680 - Physical Exam Oriented: Normal Eyes: Normal Ear: Normal Nose: Normal Throat: Normal Cardiovascular: Normal : Normal Auscultation: Bowel Sounds: Normal Tenderness: Normal Skin: Red, Tender, Hot, Wound (right hand with mild improvement of the deep infection .limited ROM because of the pain .several small blisters of the fingers,3 and 4 th .) Musculoskeletal: Right, Hand, Swelling, Tender Mood Description: Calm Speech Pattern: Clear - Laboratory and Diagnostics Result Diagrams: 02/23/23 05:32 02/23/23 05:32 Labs: 02/21/23 11:44 Hand - Right Wound Gram Stain - Final 02/21/23 11:44 Hand - Right Wound Culture - Preliminary 02/19/23 18:04 Hand - Right Wound Gram Stain - Final 02/19/23 18:04 Hand - Right Wound Culture - Final Strep Pyogenes (Grp A) 02/19/23 16:57 Blood Blood Culture - Preliminary 02/19/23 16:52 Blood Blood Culture - Preliminary Laboratory WBC 9.5 X10^3/uL (3.6-10.0) 02/23/23 05:32 RBC 4.14 X10^6/uL (4.7-6.0) L 02/23/23 05:32 Hgb 12.7 g/dL (13.5-18.0) L 02/23/23 05:32 Hct 36.8 % (42.0-54.0) L 02/23/23 05:32 MCV 89.0 fL (80.0-100.0) 02/23/23 05:32 MCH 30.7 pg (27.0-34.0) 02/23/23 05:32 MCHC 34.5 g/dL (33.0-35.0) 02/23/23 05:32 RDW 12.4 % (11.6-16.5) 02/23/23 05:32 Plt Count 237 X10^3/uL (150.0-450.0) 02/23/23 05:32 Plt Count Comment Adequate (ADEQUATE) 02/20/23 05:10 MPV 7.4 fL (7.4-11.0) 02/23/23 05:32 Neut % (Auto) 62.4 % (42.0-75.0) 02/23/23 05:32 Lymph % (Auto) 25.1 % (21.0-51.0) 02/23/23 05:32 [place] % (Auto) 9.2 % (0.0-13.0) 02/23/23 05:32 Eos % (Auto) 2.6 % (0.9-2.9) 02/23/23 05:32 Baso % (Auto) 0.7 % (0.2-1.0) 02/23/23 05:32 Neut # (Auto) 5.9 x10^3/uL (2.2-4.8) H 02/23/23 05:32 Lymph # (Auto) 2.4 X10^3/uL (1.3-2.9) 02/23/23 05:32 [place] # (Auto) 0.9 x10^3/uL (0.3-0.8) H 02/23/23 05:32 Eos # (Auto) 0.3 x10^3/uL (0.0-0.2) H 02/23/23 05:32 Baso # (Auto) 0.1 X10^3/uL (0.0-0.1) 02/23/23 05:32 Absolute Nucleated RBC 0.0 /100WBC 02/23/23 05:32 Total Counted 100 02/20/23 05:10 Neutrophils % (Manual) 84 % (39-76) H 02/20/23 05:10 Band Neutrophils % 3 % (0-10) 02/20/23 05:10 Lymphocytes % (Manual) 6 % (13-43) L 02/20/23 05:10 Monocytes % (Manual) 7 % (4-9) 02/20/23 05:10 Plt Morphology Comment Normal (NORMAL) 02/20/23 05:10 RBC Morphology Normal (NORMAL) 02/20/23 05:10 Sodium 141 mmol/L (136-145) 02/23/23 05:32 Corrected Sodium TNP 02/23/23 05:32 Potassium 3.7 mmol/L (3.5-5.1) 02/23/23 05:32 Chloride 108 mmol/L (98-107) H 02/23/23 05:32 Carbon Dioxide 27.1 mmol/L (21-32) 02/23/23 05:32 BUN 6 mg/dL (7-18) L 02/23/23 05:32 Creatinine 0.66 mg/dL (0.70-1.30) L 02/23/23 05:32 Est GFR (MDRD) Af Amer > 60 (>60) 02/23/23 05:32 Est GFR (MDRD) Non-Af > 60 (>60) 02/23/23 05:32 Glucose 95 mg/dL (65-99) 02/23/23 05:32 Lactic Acid 1.5 mmol/L (0.4-2.0) 02/19/23 16:52 Calcium 7.8 mg/dL (8.5-10.1) L 02/23/23 05:32 Corrected Calcium 9.2 mg/dL (8.5-10.1) 02/23/23 05:32 Magnesium 1.8 mg/dL (2.0-2.9) L 02/23/23 05:32 Total Bilirubin 0.10 mg/dL (0.2-1.0) L 02/23/23 05:32 AST 12 Units/L (15-37) L 02/23/23 05:32 ALT 42 Units/L (12-78) 02/23/23 05:32 Alkaline Phosphatase 53 Units/L (46-116) 02/23/23 05:32 Total Protein 5.4 g/dL (6.4-8.2) L 02/23/23 05:32 Albumin 2.2 g/dL (3.4-5.0) L 02/23/23 05:32 Globulin 3.2 g/dL (2.5-4.5) 02/23/23 05:32 Albumin/Globulin Ratio 0.7 Ratio (1.1-2.1) L 02/23/23 05:32 Specimen Type Clean catch urine 02/19/23 19:18 Urine Color Yellow (YELLOW) 02/19/23 19:18 Urine Appearance Clear (CLEAR) 02/19/23 19:18 Urine pH 7.0 (5.0 - 8.0) 02/19/23 19:18 Ur Specific [place] 1.010 (1.000-1.030) 02/19/23 19:18 Urine Protein 1+ (NEGATIVE) 02/19/23 19:18 Urine Glucose (UA) Negative (NEGATIVE) 02/19/23 19:18 Urine Ketones Negative (NEGATIVE) 02/19/23 19:18 Urine Blood Negative (NEGATIVE) 02/19/23 19:18 Urine Nitrite Negative (NEGATIVE) 02/19/23 19:18 Urine Bilirubin Negative (NEGATIVE) 02/19/23 19:18 Urine Urobilinogen Normal (NORMAL) 02/19/23 19:18 Ur Leukocyte Esterase Negative (NEGATIVE) 02/19/23 19:18 Urine RBC None seen /HPF (0-3) 02/19/23 19:18 Urine WBC 0-2 /HPF (0-5) 02/19/23 19:18 Ur Squamous Epith Cells Rare /HPF (NEGATIVE) 02/19/23 19:18 Urine Bacteria Negative /HPF (NEGATIVE) 02/19/23 19:18 Ur Culture Indicated? No/not indicated 02/19/23 19:18 Vancomycin Trough 8.8 ug/mL (15-20) L 02/23/23 05:32 Urine Opiates Screen Negative (NEG=<300) 02/19/23 19:18 Urine Methadone Screen Negative (NEG=<300) 02/19/23 19:18 Ur Barbiturates Screen Negative (NEG=<200) 02/19/23 19:18 Ur Phencyclidine Scrn Negative (NEG=<25) 02/19/23 19:18 Ur Amphetamines Screen Positive (NEG=<1000) 02/19/23 19:18 U Benzodiazepines Scrn Negative (NEG=<200) 02/19/23 19:18 Urine Cocaine Screen Negative (NEG=<300) 02/19/23 19:18 U Marijuana (THC) Screen Positive (NEG=<50) A 02/19/23 19:18 - Plan (1) Cellulitis of hand, right Status: Acute Plan: IV HYDRATION, IV ANTIBIOTIC THERAPY WITH ZOSYN AND VANCOMYCIN. VERIFY HOME MEDICATION, BLOOD AND WOUND CULTURES OBTAINED ON ADMISSION. HAND XRAY OBTAINED IN THE ER (2) Illicit drug use Status: Acute
[2023-02-24 05:01] LABS: BASOPHILS # (AUTO) 0.1 X10^3/uL (0.0-0.1); BASOPHILS % (AUTO) 0.8 % (0.2-1.0); EOSINOPHILS # (AUTO) 0.3 x10^3/uL (0.0-0.2); EOSINOPHILS % (AUTO) 2.8 % (0.9-2.9); HEMATOCRIT 39.1 % (42.0-54.0); HEMOGLOBIN 13.3 g/dL (13.5-18.0); LYMPHOCYTES # (AUTO) 2.8 X10^3/uL (1.3-2.9); LYMPHOCYTES % (AUTO) 27.2 % (21.0-51.0); MEAN CORPUSCULAR HEMOGLOBIN 29.8 pg (27.0-34.0); MEAN CORPUSCULAR HGB CONC 33.9 g/dL (33.0-35.0); MEAN PLATELET VOLUME 7.4 fL (7.4-11.0); MONOCYTES % (AUTO) 9.5 % (0.0-13.0); NEUTROPHILS # (AUTO) 6.1 x10^3/uL (2.2-4.8); NEUTROPHILS % (AUTO) 59.7 % (42.0-75.0); PLATELET COUNT 309 X10^3/uL (150.0-450.0); RED BLOOD COUNT 4.44 X10^6/uL (4.7-6.0); RED CELL DISTRIBUTION WIDTH 12.2 % (11.6-16.5); WHITE BLOOD COUNT 10.2 X10^3/uL (3.6-10.0)
[2023-02-24] MEDS: NS 1,000 ML IV 1,000 ML IV SCH ×4 (05:06→22:14)
[2023-02-24 05:25] LABS: ALANINE AMINOTRANSFERASE 36 Units/L (12-78); ALBUMIN 2.4 g/dL (3.4-5.0); ALKALINE PHOSPHATASE 46 Units/L (46-116); ASPARTATE AMINO TRANSFERASE 11 Units/L (15-37); BLOOD UREA NITROGEN 9 mg/dL (7-18); CALCIUM 8.4 mg/dL (8.5-10.1); CHLORIDE 105 mmol/L (98-107); COR CA(FOR HYPOALB) 9.7 mg/dL (8.5-10.1); CREATININE 0.77 mg/dL (0.70-1.30); GLUCOSE 98 mg/dL (65-99); PLATELET MORPHOLOGY COMMENT NORMAL (NORMAL); POTASSIUM 3.5 mmol/L (3.5-5.1); SODIUM 140 mmol/L (136-145); TOTAL PROTEIN 5.7 g/dL (6.4-8.2); eGFR NON BLACK RACES > 60 (>60)
[2023-02-24 05:26] LABS: CREATININE 0.75 mg/dL (0.70-1.30); VANCOMYCIN,TROUGH 16.5 ug/mL (15-20)
[2023-02-24] MEDS ORDERED: PHARMACY COMMENT IV NR (05:30)
[2023-02-24] MEDS: TORADOL 30 MG VIAL IVP PRN ×2 (06:01→18:18)
[2023-02-24] MEDS: ZOSYN VIAL 3.375 GRAMS 3.375 G in NS 100 ML IV 100 ML IV SCH ×3 (06:29→22:13)
[2023-02-24] MEDS: VANCOMYCIN IV *PREMIX 1.5 G/300 ML BAG 1.5 G/300 ML PIGGYBACK IV SCH ×3 (06:30→22:13)
[2023-02-24] MEDS: MAG-OX TAB PO SCH ×2 (06:30→17:45)
--- NOTE | 2023-02-24 08:20 | DR.PROGNOT ---
HOSPITAL PROGRESS NOTE Progress Note for Day of: Progress Note Date: 02/24/23 Chief Complaint Chief Complaint: Still having localized swelling and erythema around the third and fourth metatarsal heads. Multiple skin blisters involving the third and fourth fingers.. Past Medical Family Social History Past Med/Fam/Surg Hx: No changes since H&P Allergies: Allergies No Known Allergies Allergy (Verified 02/19/23 17:03) Review Of Systems ROS: No change since H&P Vital Signs Vital Signs: Temperature 98.6 F Pulse Rate [Right Brachial] 80 Pulse Rate 85 Respiratory Rate 20 Blood Pressure [Left Arm] 114/61 Blood Pressure [Right Arm] 120/65 Blood Pressure 119/72 O2 Sat by Pulse Oximetry 99 Physical Exam Oriented: Normal Eyes: Normal Ear: Normal Nose: Normal Throat: Normal Cardiovascular: Normal : Normal GI:Auscultation: Normal GI:Palpation: Normal GI: Tenderness: Normal Skin: Red, Tender, Hot and Wound (right hand with mild improvement of the deep infection .limited ROM because of the pain .several small blisters of the fingers,3 and 4 th .) Musculoskeletal: Right, Hand, Swelling and Tender Mood Description: Calm Speech Pattern: Clear Laboratory and Diagnostics Result Diagrams: 02/24/23 04:34 02/24/23 04:34 Labs: 02/21/23 11:44 Hand - Right Wound Gram Stain - Final 02/21/23 11:44 Hand - Right Wound Culture - Final Strep Pyogenes (Grp A) 02/19/23 18:04 Hand - Right Wound Gram Stain - Final 02/19/23 18:04 Hand - Right Wound Culture - Final Strep Pyogenes (Grp A) 02/19/23 16:57 Blood Blood Culture - Preliminary 02/19/23 16:52 Blood Blood Culture - Preliminary Laboratory WBC 10.2 X10^3/uL (3.6-10.0) H 02/24/23 04:34 RBC 4.44 X10^6/uL (4.7-6.0) L 02/24/23 04:34 Hgb 13.3 g/dL (13.5-18.0) L 02/24/23 04:34 Hct 39.1 % (42.0-54.0) L 02/24/23 04:34 MCV 88.0 fL (80.0-100.0) 02/24/23 04:34 MCH 29.8 pg (27.0-34.0) 02/24/23 04:34 MCHC 33.9 g/dL (33.0-35.0) 02/24/23 04:34 RDW 12.2 % (11.6-16.5) 02/24/23 04:34 Plt Count 309 X10^3/uL (150.0-450.0) 02/24/23 04:34 Plt Count Comment Adequate (ADEQUATE) 02/24/23 04:34 MPV 7.4 fL (7.4-11.0) 02/24/23 04:34 Neut % (Auto) 59.7 % (42.0-75.0) 02/24/23 04:34 Lymph % (Auto) 27.2 % (21.0-51.0) 02/24/23 04:34 [place] % (Auto) 9.5 % (0.0-13.0) 02/24/23 04:34 Eos % (Auto) 2.8 % (0.9-2.9) 02/24/23 04:34 Baso % (Auto) 0.8 % (0.2-1.0) 02/24/23 04:34 Neut # (Auto) 6.1 x10^3/uL (2.2-4.8) H 02/24/23 04:34 Lymph # (Auto) 2.8 X10^3/uL (1.3-2.9) 02/24/23 04:34 [place] # (Auto) 1.0 x10^3/uL (0.3-0.8) H 02/24/23 04:34 Eos # (Auto) 0.3 x10^3/uL (0.0-0.2) H 02/24/23 04:34 Baso # (Auto) 0.1 X10^3/uL (0.0-0.1) 02/24/23 04:34 Absolute Nucleated RBC 0.0 /100WBC 02/24/23 04:34 Total Counted 100 02/24/23 04:34 Neutrophils % (Manual) 70 % (39-76) 02/24/23 04:34 Band Neutrophils % 3 % (0-10) 02/20/23 05:10 Lymphocytes % (Manual) 24 % (13-43) 02/24/23 04:34 Monocytes % (Manual) 6 % (4-9) 02/24/23 04:34 Plt Morphology Comment Normal (NORMAL) 02/24/23 04:34 RBC Morphology Normal (NORMAL) 02/24/23 04:34 Sodium 140 mmol/L (136-145) 02/24/23 04:34 Corrected Sodium TNP 02/24/23 04:34 Potassium 3.5 mmol/L (3.5-5.1) 02/24/23 04:34 Chloride 105 mmol/L (98-107) 02/24/23 04:34 Carbon Dioxide 30.0 mmol/L (21-32) 02/24/23 04:34 BUN 9 mg/dL (7-18) 02/24/23 04:34 Creatinine 0.75 mg/dL (0.70-1.30) 02/24/23 04:34 Creatinine 0.77 mg/dL (0.70-1.30) 02/24/23 04:34 Est GFR (MDRD) Af Amer > 60 (>60) 02/24/23 04:34 Est GFR (MDRD) Non-Af > 60 (>60) 02/24/23 04:34 Glucose 98 mg/dL (65-99) 02/24/23 04:34 Lactic Acid 1.5 mmol/L (0.4-2.0) 02/19/23 16:52 Calcium 8.4 mg/dL (8.5-10.1) L 02/24/23 04:34 Corrected Calcium 9.7 mg/dL (8.5-10.1) 02/24/23 04:34 Magnesium 1.8 mg/dL (2.0-2.9) L 02/23/23 05:32 Total Bilirubin 0.20 mg/dL (0.2-1.0) 02/24/23 04:34 AST 11 Units/L (15-37) L 02/24/23 04:34 ALT 36 Units/L (12-78) 02/24/23 04:34 Alkaline Phosphatase 46 Units/L (46-116) 02/24/23 04:34 Total Protein 5.7 g/dL (6.4-8.2) L 02/24/23 04:34 Albumin 2.4 g/dL (3.4-5.0) L 02/24/23 04:34 Globulin 3.3 g/dL (2.5-4.5) 02/24/23 04:34 Albumin/Globulin Ratio 0.7 Ratio (1.1-2.1) L 02/24/23 04:34 Specimen Type Clean catch urine 02/19/23 19:18 Urine Color Yellow (YELLOW) 02/19/23 19:18 Urine Appearance Clear (CLEAR) 02/19/23 19:18 Urine pH 7.0 (5.0 - 8.0) 02/19/23 19:18 Ur Specific [place] 1.010 (1.000-1.030) 02/19/23 19:18 Urine Protein 1+ (NEGATIVE) 02/19/23 19:18 Urine Glucose (UA) Negative (NEGATIVE) 02/19/23 19:18 Urine Ketones Negative (NEGATIVE) 02/19/23 19:18 Urine Blood Negative (NEGATIVE) 02/19/23 19:18 Urine Nitrite Negative (NEGATIVE) 02/19/23 19:18 Urine Bilirubin Negative (NEGATIVE) 02/19/23 19:18 Urine Urobilinogen Normal (NORMAL) 02/19/23 19:18 Ur Leukocyte Esterase Negative (NEGATIVE) 02/19/23 19:18 Urine RBC None seen /HPF (0-3) 02/19/23 19:18 Urine WBC 0-2 /HPF (0-5) 02/19/23 19:18 Ur Squamous Epith Cells Rare /HPF (NEGATIVE) 02/19/23 19:18 Urine Bacteria Negative /HPF (NEGATIVE) 02/19/23 19:18 Ur Culture Indicated? No/not indicated 02/19/23 19:18 Vancomycin Trough 16.5 ug/mL (15-20) 02/24/23 04:34 Urine Opiates Screen Negative (NEG=<300) 02/19/23 19:18 Urine Methadone Screen Negative (NEG=<300) 02/19/23 19:18 Ur Barbiturates Screen Negative (NEG=<200) 02/19/23 19:18 Ur Phencyclidine Scrn Negative (NEG=<25) 02/19/23 19:18 Ur Amphetamines Screen Positive (NEG=<1000) 02/19/23 19:18 U Benzodiazepines Scrn Negative (NEG=<200) 02/19/23 19:18 Urine Cocaine Screen Negative (NEG=<300) 02/19/23 19:18 U Marijuana (THC) Screen Positive (NEG=<50) A 02/19/23 19:18 Assessment and Plan 1: cellulitis with abscess RT hand . S/P debridement . same local care with soaking in H2O2 and Saline . . IV ABT . hand elevation . No need for further debridement today. Problem Patient Problems: Patient Problems (Updated 02/19/23 @ 19:06 by iGgi Fernández) Cellulitis of hand, right (Acute) L03.113 Illicit drug use (Acute) F19.90
[2023-02-24] MEDS: BACTROBAN TOPICAL OINT TOP SCH ×2 (10:09→22:13)
[2023-02-24] MEDS: HIBICLENS WASH EXT PRN (10:09)
[2023-02-24] MEDS: NICOTINE PATCH TD SCH (10:26)
[2023-02-24] MEDS: K-DUR TAB 20 MEQ PO PRN (10:26)
[2023-02-24] MEDS: CHECK PATCH XX SCH ×2 (10:35→22:14)
[2023-02-25] MEDS: TORADOL 30 MG VIAL IVP PRN ×2 (03:15→14:09)
[2023-02-25] MEDS: NS 1,000 ML IV 1,000 ML IV SCH ×2 (04:10→12:30)
[2023-02-25] MEDS: ZOSYN VIAL 3.375 GRAMS 3.375 G in NS 100 ML IV 100 ML IV SCH (05:21)
[2023-02-25] MEDS: VANCOMYCIN IV *PREMIX 1.5 G/300 ML BAG 1.5 G/300 ML PIGGYBACK IV SCH (05:22)
[2023-02-25 06:10] LABS: BASOPHILS # (AUTO) 0.1 X10^3/uL (0.0-0.1); BASOPHILS % (AUTO) 0.7 % (0.2-1.0); EOSINOPHILS # (AUTO) 0.4 x10^3/uL (0.0-0.2); EOSINOPHILS % (AUTO) 3.8 % (0.9-2.9); HEMATOCRIT 37.8 % (42.0-54.0); HEMOGLOBIN 12.9 g/dL (13.5-18.0); LYMPHOCYTES # (AUTO) 2.4 X10^3/uL (1.3-2.9); MEAN CORPUSCULAR HEMOGLOBIN 30.2 pg (27.0-34.0); MEAN CORPUSCULAR HGB CONC 34.1 g/dL (33.0-35.0); MEAN CORPUSCULAR VOLUME 88.5 fL (80.0-100.0); MEAN PLATELET VOLUME 7.2 fL (7.4-11.0); MONOCYTES # (AUTO) 0.8 x10^3/uL (0.3-0.8); NEUTROPHILS % (AUTO) 62.5 % (42.0-75.0); PLATELET COUNT 294 X10^3/uL (150.0-450.0); RED BLOOD COUNT 4.27 X10^6/uL (4.7-6.0); RED CELL DISTRIBUTION WIDTH 12.4 % (11.6-16.5); WHITE BLOOD COUNT 9.6 X10^3/uL (3.6-10.0)
[2023-02-25] MEDS: MAG-OX TAB PO SCH (06:10)
[2023-02-25 06:23] LABS: ALANINE AMINOTRANSFERASE 34 Units/L (12-78); ALBUMIN 2.5 g/dL (3.4-5.0); ALKALINE PHOSPHATASE 42 Units/L (46-116); ASPARTATE AMINO TRANSFERASE 14 Units/L (15-37); BLOOD UREA NITROGEN 8 mg/dL (7-18); CALCIUM 8.1 mg/dL (8.5-10.1); CARBON DIOXIDE 28.3 mmol/L (21-32); CHLORIDE 106 mmol/L (98-107); COR CA(FOR HYPOALB) 9.3 mg/dL (8.5-10.1); CREATININE 0.72 mg/dL (0.70-1.30); GLUCOSE 89 mg/dL (65-99); MAGNESIUM 1.7 mg/dL (2.0-2.9); POTASSIUM 4.1 mmol/L (3.5-5.1); SODIUM 140 mmol/L (136-145); TOTAL PROTEIN 5.8 g/dL (6.4-8.2); eGFR NON BLACK RACES > 60 (>60)
[2023-02-25 07:04] LABS: PLATELET MORPHOLOGY COMMENT NORMAL (NORMAL)
[2023-02-25] MEDS ORDERED: LEVAQUIN TAB 500 MG PO SCH (10:00)
[2023-02-25] MEDS: BACTROBAN TOPICAL OINT TOP SCH (10:30)
[2023-02-25] MEDS: CHECK PATCH XX SCH (10:40)
[2023-02-25] MEDS: NICOTINE PATCH TD SCH (10:43)
[2023-02-25 12:27] VITALS: BP 125/75
== END 2023-02-25 15:25 | disposition home or self-care (01) | DRG 603 ==
LOC: ER 15:40 → MED/SURG 15:40
PROVIDERS: ADMIT Internal Medicine; ATTEND Internal Medicine
DX: L02.511 Cutaneous abscess of right hand; L03.113 Cellulitis of right upper limb; F12.90 Cannabis use, unspecified, uncomplicated; F15.90 Other stimulant use, unspecified, uncomplicated